=== PATIENT | female | born 1955 | race African-American/Black ===

== ENCOUNTER 2022-10-29 18:48 | Emergency (ER) | payer OTHER ==
[~2022-10-29] VITALS: Ht 160 cm; Wt 108.0 kg
[2022-10-29 19:07] VITALS: O2SAT 100
[2022-10-29] MEDS ORDERED: IBUPROFEN 400MG TABLET PO ONE (22:00)
[2022-10-29 22:25] VITALS: BP 144/59; PULSE 65; RESP 20
[2022-10-30] MEDS ORDERED: TOPUD MT (00:49)
[2022-10-30] MEDS ORDERED: ACETAMINOPHEN 325MG TABLET PO ONE (01:00)
[2022-10-30 01:16] VITALS: TEMP 98.5
== END 2022-10-30 01:20 | disposition home or self-care (01) ==
LOC: ER 21:37
DX: S92.401A Displaced unspecified fracture of right great toe, initial encounter for closed fracture (principal); I10 Essential (primary) hypertension; W18.39XA Other fall on same level, initial encounter; Y93.89 Activity, other specified; Y92.89 Other specified places as the place of occurrence of the external cause; Y99.8 Other external cause status; Z98.51 Tubal ligation status; Z90.49 Acquired absence of other specified parts of digestive tract
CPT/HCPCS: 81025; 73630; 93970; 29515; 99284; Z7610